=== PATIENT | male | born 1990 | race Caucasian/White ===

== ENCOUNTER 2017-04-14 13:18 | Inpatient (IN) | payer OTHER ==
[2017-04-14 13:26] VITALS: BP 147/84; PULSE 79; RESP 18; O2SAT 99
--- NOTE | 2017-04-14 13:58 | ED.REPORT ---
HPI-Psychiatric Illness Date of Service Apr 14, 2017 ED Provider: Marino Cade MD The patient is a 27 year old male w/ a hx pf bipolar schizophrenic who presents to the ED via PD for a mental health evaluation. The patient is living with his mother on [address]. His mother called the police department after the patient was having a breakdown and throwing his pill bottles everywhere. It took his mother 45 minutes to find her phone because the pt had hidden it. When police arrived, the pt was outside and walked away from the deputy. The officer established a good report and was able to get the pt in the car. Inside the car , the pt became angry and irritable and placed in handcuffs. At the ED, the pt claims he is part of a satellite and government program. He is the legal foster child of Jodi and Tristan [place] and has been under remote technology for 7 months now. He repeats that he is "not crazy and works for a living." He reports that he, "doesn't know what is going on and his mother wanted him to come here." Pt states that he is coming off of Valium and Adderall. He was recently in a 7 month psychiatric treatment center in [place]. Nursing Notes Stated Complaint: OFF MEDS/VIOLENT BEHAVIOR Chief Complaint: Psychiatric Complaint Nursing Notes Reviewed: Yes ([employer], meds not reconciled) Allergies: Coded Allergies: No Known Allergies (Unverified , REPORTED BY MOM, 04/14/17) General Time Seen by MD: 13:55 Chief Complaint Paranoid Hx Obtained From: Patient Arrived By: Police Onset Occurred: Just prior to arrival Symptom Duration: Since onset Severity: Current: No pain currently Recent Healthcare: No recent doctor visit, No recent hospitalization Similar Sx Previous: No Risk-Psychiatric Illness Suicide Risk Stratification Suicide Risk Factors - Adult: : Prior psych admission RF Statements: Risk factors reviewed Past Medical History Past Medical History bipolar schizophrenic (Extensive psychiatric hospitalizations including last years spending 7 months hospitalized in [place] for psychiatric care) Past Surgical History denies Smoking History Unknown if Ever Smoker Social History Drug Use: Valium Other Social History: Lives with parents Ambulatory Status Independent Review of Systems Unable to Obtain ROS Patient condition, Mental status Physical Exam Initial Vital Signs Vital Signs (First) Date Time Temp Pulse Resp B/P Pulse Ox O2 Delivery O2 Flow Rate FiO2 04/14/17 13:26 36.8 79 18 147/84 99 Room Air Initial VS: Reviewed, Vital signs normal General/Constitutional: Awake, Cooperative rapid speech delusional Neurologic: Speech NL Abnormal Mood/Affect: Positive: Anxious, Flight of ideas Abnormal Thinking / Perception: Positive: Delusions - grandeur, Delusions - paranoid, Flight of ideas, Hallucinations, auditory, Insight abnormal, Judgment abnormal, Tangential thinking Pt does not respond when asked about suicidal or homicidal ideations Head / Eyes: Atraumatic, Normocephalic, PERRL ENT: Atraumatic, Airway patent, Mucous membranes moist Respiratory / Chest: Atraumatic, Breath sounds NL, Breath sounds = bilat Cardiovascular: Heart rate NL, Regular rhythm, Heart sounds NL Skin: Atraumatic, Color NL, No rash Upper Extremity / MS: Atraumatic, Full range of motion, No deformity Wrist / Hand: Atraumatic, Full range of motion, No deformity Lower Extremity / Pelvis / MS: Atraumatic, Full range of motion, No deformity Ankle / Foot: Atraumatic, Full range of motion, No deformity Interpretation & Diagnostics Lab Results Interpretation Result Diagram: 04/14/17 1420 04/14/17 1420 Test 04/14/17 14:06 04/14/17 14:20 Urine Color Yellow (YELLOW) Urine Appearance Clear (CLEAR,HAZY) Urine pH 6.5 (5.0-8.0) Urine Specific [place] 1.020 (1.003-1.035) Urine Protein Negativemg/dL (NEG,TRACE) Urine Glucose (UA) Negativemg/dL (NEGATIVE) Urine Ketones Negativemg/dL (NEGATIVE) Urine Occult Blood Negative (NEGATIVE) Urine Nitrite Negative (NEGATIVE) Urine Bilirubin Negative (NEGATIVE) Urine Urobilinogen Normalmg/dL (NORMAL) Urine Leukocyte Esterase Negative (NEGATIVE) Urine RBC 0-2/hpf (0-2) Urine WBC 0-5/hpf (0-5) Urine Epithelial Cells None/hpf (NONE-MOD) Urine Crystals None seen (NONE SEEN) Urine Bacteria None/hpf (NONE-FEW) Urine Hyaline Casts None/lpf (NONE) Urine Granular Casts None seen (NONE SEEN) Urine Waxy Casts None seen (NONE SEEN) Urine Red Blood Cell Casts None seen (NONE SEEN) Urine White Blood Cell Casts None seen (NONE SEEN) Urine Mucus None seen (None Seen) Urine Trichomonas None seen (NONE SEEN) Urine Yeast None (NONE SEEN) Urinalysis Comment None Urine Culture Reflexed Not indicated White Blood Count 8.4th/mm3 (3.8-10.1) Red Blood Count 5.48mil/mm3 (4.40-5.80) Hemoglobin 16.4g/dL (13.8-17.2) Hematocrit 48.5% (41.0-50.0) Mean Corpuscular Volume 88.5fL (81-100) Mean Corpuscular Hemoglobin 29.9pg (27.0-35.0) Mean Corpuscular Hemoglobin Concent 33.8% (32.0-37.0) Red Cell Distribution Width 13.0% (12.3-15.4) Platelet Count 130bil/L (150-400) Neutrophils (%) (Auto) 77.7% (40-74) Lymphocytes (%) (Auto) 16.5% (14-46) Monocytes (%) (Auto) 5.5% (4-12) Eosinophils (%) (Auto) 0.2% (0-5) Basophils (%) (Auto) 0.1% (0-3) Sodium Level 142mEq/L (134-144) Potassium Level 4.0mEq/L (3.5-5.2) Chloride Level 104mEq/L (97-108) Carbon Dioxide Level 22mmol/L (18-29) Blood Urea Nitrogen 21mg/dL (6-20) Creatinine 0.79mg/dL (0.76-1.27) Estimat Glomerular Filtration Rate 126mL/min (>59) Glucose Level 86mg/dL (60-99) Calcium Level 10.6mg/dL (8.5-10.1) Total Bilirubin 0.4mg/dL (0.0-1.2) Aspartate Amino Transf (AST/SGOT) 16U/L (0-50) Alanine Aminotransferase (ALT/SGPT) 15U/L (0-44) Alkaline Phosphatase 75U/L (25-150) Total Protein 8.0g/dL (6.4-8.4) Albumin 5.1g/dL (3.4-5.0) Thyroid Stimulating Hormone (TSH) 0.726uIU/mL (0.450-4.500) Hold Jones Top Tube Received (Received) Lab Results Interpretation: Alcohol 0 U tox negative CBC normal CMP normal TSH normal Re-Eval/Medical Decision Med Decision/Clinical Course This is a 27-year-old male brought by law enforcement for mental health evaluation. The patient himself is unable to provide any useful history-is very focused on his paranoid delusions of being part of a government monitoring program, being the foster child of Katheryn [place], being the recipient of microwave communications directly into his brain to the point he rapid fire reiterates these points again and again, but will not engage in a productive conversation. According to the officer and per the relayed information from the PULLMAN CLERK spoke with the patient's mother, the patient is an extensive psychiatric history and has had numerous prior hospitalizations including a 7 month hospitalization last year. However according to the PULLMAN CLERK's report from the mother, the patient did not like the sense of being slightly on the medication regimen when he is discharged last July-and promptly discontinue his medications. They report that he has not been taking any medications, and has refused to go see a provider, does not want to be hospitalized, does not want to be on any medication, and other than trying to get him in to be seen, he is refused. He has become increasingly paranoid and delusional. Today there was some sort of incident where he became threatening, the point that the mother ended up trying to lock him outside the house to protect herself, and he kept trying to forgot how to break into the house and removing a screen such called 911 and that is when law enforcement arrived. The patient repeatedly states "I am not crazy". He then goes on to list the long length the components of delusions as briefly described above. On exam he has increased psychomotor activity with pacing, rapid movements, and inability to focus, and pressured speech. He has absent insight, and absent judgment. He is mildly agitated, required seclusion. [id number] evaluation was performed on concimittant to the initiation of seclusion. With effort the patient can be briefly redirected. He does not answer any questions about suicidality or homicidality, he does not answer most questions and again is focused on communicating his involvement in Government programs rather than answering or engaging in conversation. He does not demonstrate overt signs of intoxication or withdrawal. His tox screen is negative. Alcohol was 0. His blood work is normal. At this point the clinical history, medication noncompliance, and exam findings are consistent with an highly suggestive of a psychiatric origin. There are no features of an organic etiology. The PULLMAN CLERK has seen the patient discussed the case with the patient's mother is attempting to get an affidavit from her, there is also enforcement affidavit- and at this point the DCRs being paged for evaluation, as it is both my opinion and The PULLMAN CLERK 's that the patient should be detained. I have offered the patient medication, and thus far he is declined. Source of Hx: Old records Re-Evaluation/Progress : Time of Eval: 13:30 Re-Evaluation/Progress Note: Pt rechecked. Face to face evaluation performed. Differential Diagnosis: Positive: Noncompliance-medications Counseled Regarding: Diagnosis, Lab results, Need for admission Discharge & Departure Shift Change Sign-Out Patient Care Transferred: Yes Discussed Complaint(s): Yes Laboratory Evaluation: Lab evaluation discussed Input from Consult: Care transferred to Dr. Smith at change of shift. Impression: Primary Impression: Psychosis Psychosis type: unspecified psychosis type Qualified Code: F29 - Unspecified psychosis not due to a substance or known physiological condition Additional Impression: Noncompliance with medication regimen Disposition: ADMITTED TO HOSPITAL Discharge Condition All VS Reviewed: Yes Condition: Stable Care Transferred to: Pt care transferred to Dr. Smith at change of shift. Care Transferred at: 18:01 Scribe Attestation Portion of this note were transcribed by Carla Marquis. I, Dr. Cade, personally performed the history, physical exam, and medical decision-making: I reviewed and confirmed the accuracy for the information in the transcribed note. Signed by: ashleigh Rios, 04/14/17 1700 Marino Cade MD Apr 14, 2017 13:58 Carla Marquis Apr 14, 2017 14:14
[2017-04-14 14:34] LABS: BASOPHILS % (AUTO) 0.1 % (0-3); EOSINOPHILS % (AUTO) 0.2 % (0-5); MONOCYTES % (AUTO) 5.5 % (4-12); Mean Corpuscular Hemoglobin 29.9 pg (27.0-35.0); Mean Corpuscular Volume 88.5 fL (81-100); NEUTROPHILS % (AUTO) 77.7 % (40-74); Platelet Count 130 bil/L (150-400)
[2017-04-14 14:53] LABS: APPEARANCE,URINE CLEAR (CLEAR,HAZY); COLOR,URINE YELLOW (YELLOW); PH,URINE 6.5 (5.0-8.0)
[2017-04-14 14:54] LABS: OCCULT BLOOD,URINE NEGATIVE (NEGATIVE); UROBILINOGEN,URINE NORMAL (NORMAL)
[2017-04-14 18:28] VITALS: BP 118/70; PULSE 77; RESP 20; O2SAT 100
[2017-04-14] MEDS ORDERED: OLANZapine Zydis ODT 5 mg Tablet PO ONE (22:55)
[2017-04-15 08:26] VITALS: BP 102/56; PULSE 60; RESP 16; O2SAT 100
[2017-04-15] MEDS ORDERED: LORazepam 1 mg Tablet PO PRN (10:05)
[2017-04-15] MEDS ORDERED: Alum-Mag Hydrox-Simeth 30 mL Suspension PO PRN (10:05)
[2017-04-15] MEDS ORDERED: Magnesium Hydroxide 10 mL Oral Concentration PO PRN (10:05)
[2017-04-15] MEDS ORDERED: Benzocaine-Menthol Lozenge 2/Pkg PO PRN (10:05)
[2017-04-15] MEDS ORDERED: OLANZapine Zydis ODT 5 mg Tablet PO PRN (10:10)
[2017-04-15] MEDS: Divalproex (QD) 500 mg ER24 Tablet PO SCH ×2 (10:54→19:58)
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
[2017-04-15] MEDS ORDERED: NO HOME MEDS (14:17)
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
--- NOTE | 2017-04-15 17:56 | NUR ---
Observations [id number] Pt arrived on unit, easily distracted by outside stimulant and focused on whom he states are his parents, Tristan and Katheryn [place]. Pt stated he wanted a snack and shower, but unsure which task he'd like to complete first. Pt slept much of the morning, did attend lunch and dinner eating 75%. Pt unclear with communication, appearing distracted by internal stimuli as well. Pt asked for crayons to color, and spent time in the dining area. He later returned to his room in the evening to sleep. Pt was observed every 15 minutes of shift as directed.
--- NOTE | 2017-04-15 21:56 | NUR ---
NURSING NOTE [id number] Mood: "what, what are you saying? If I answer will I stay here longer?" Affect: paranoid, delusional, agitated at times Behavior: pt. often pacing the unit, on the phone with his mother (pt. at one point told this flex o writer operator "I'm on the phone with my mom but then corrected himself and said: "I mean... the lady I've been living with"), his mother later visited him here w/out issue. Pt. was visibly responding to stimuli, twitching his head off and on and talking to unseen others throughout the shift. He was offered PRN Zyprexa but refused. Also refused his scheduled HS Depakote stating "I already had that today-- 500 mg is too much". Provided pt. with education and assurance but pt. became increasingly agitated at the thought of having to take Depakote. Pt. asked if he could take PRN Ambien but then only wanted "half a pill or else my jaw will be paralyzed" so was given 2.5 mg Ambien total. Thought processes: suspicious, delusional (e.g. wants to be called "[place] Stanislav" and believes he is the son of Katheryn and Tristan [place]), pressured, racing thoughts. States he does not need any antipsychotics.
--- NOTE | 2017-04-16 05:35 | NUR ---
Nursing Note Photocomposition Keyboard Operator 11pm to 7am Pt asleep at start of shift, after taking Ambien 2.5mg ( declined whole dose of 5mg) at 2200, and remained asleep the remainder of the shift. No issues observed or reported. Slept 6.5 hours Monitored pt. with q 15 minute face checks for safety location and accountability
[2017-04-16] MEDS: Divalproex (QD) 500 mg ER24 Tablet PO SCH (09:12)
[2017-04-16] MEDS: Ascorbic Acid 500 mg Tablet PO SCH (12:06)
--- NOTE | 2017-04-16 13:10 | PROG NOTE ---
[address] [address] PROGRESS NOTE PATIENT: CHANDAN RYAN : 1990 MR#: [id number] ADMIT: 04/15/2017 JOB ID: [id number] DATE: 04/16/2017 CHIEF COMPLAINT: "I did take some Ambien last night. I think it helped. Can you make sure that I get it again tonight?" HISTORY OF PRESENT ILLNESS: As stated above, the patient did indicate that he would like to continue on medications including Ambien. However, I have discussed contributing factors of addiction of the patient with recommendations of institution of melatonin. He indicated that he would be fine with trying it, but states that he is very sensitive to medications. In addition, he would like to actually take vitamin C indicating that he is feeling like he has a scratchy throat. He reportedly did refuse his last evening dose of Depakote but upon further explanation with myself he is agreeable to continuing with the medication interventions. Per nursing staff report, the patient did have a visit from his mother and did have a notable shift of mood irritability and agitation post visit. He indicated that his mother is very controlling and tries to dictate how he is going to run his life. He does show some significant improvement with clearing of his sensorium on approach. He was able to maintain better eye contact and showed decreased hyperkinesis. Later the patient is detoxing from previous usage of amphetamines including Adderall, methamphetamine and previous usage of Xanax. OBJECTIVE: On mental status examination, the patient as noted made significant improved eye contact. He did shower earlier this morning. His speech is less pressured and more coherent, cohesive. His mood is neutral. His affect is more appropriate. His thought process shows no evidence of racing thoughts. He is mildly loose and disorganized but much more redirectable. His thought content: He denied any evidence of current suicidal or homicidal ideation. There was no evidence of active hallucinations or delusions. He at times appears to be responding to internal stimulus but denies any experience of auditory hallucinations. He was alert, oriented to time and place. His attention and concentration intact. Insight and judgment are fair. PHYSICAL EXAM: All vital signs are current. Temperature is 36.1, pulse 60, respirations 16, BP 102/56. MEDICATION REVIEW: Includes: 1. Depakote 500 mg ER b.i.d. 2. Ambien 2.5 mg q.h.s. taken last night. 3. Vistaril 50 mg q.4 hours p.r.n. 4. Ativan 1 mg q.4 hours p.r.n. ASSESSMENT: AXIS I 1. Mood disorder, not otherwise specified. 2. Polysubstance use disorder including amphetamines and benzodiazepines. 3. Rule out substance induced mood disorder. AXIS II Deferred. AXIS III None. AXIS IV Stressors are noted for chronic substance use, disturbance of coping. AXIS V Global assessment of functioning of current 35. PLANS: 1. Recommendations for probable discharge tomorrow with discontinuation of 72 hour hold. 2. Recommendations for continuation of Depakote ER 500 mg b.i.d. with further titration deferred to outpatient care providers. 3. Discontinuation of Ativan and Ambien based on the patient's history of significant addiction. 4. Recommendations for institution of melatonin 5 mg q.h.s. for sleep disturbance. 5. Followup to be arranged with community based centers including [facility], [facility] or connections with [facility]. TISH
--- NOTE | 2017-04-16 14:39 | NUR ---
Nursing 7a-3p Pt showing slight improvement in thought content. He is restless on the unit pacing the hallways. He is quickly irritated when called Akin instead of "Pucket". Akin is patient's given name and "Pucket" is the name he has chosen for himself. When staff apologized for calling him Akin he became irritable and stated "No one is allowed to call me that unless you are a gangster. You are not a gangster!" Pt later came and apologized for yelling and asked "You aren't going to report that are you." Pt able to maintain behavioral control with no further verbal outbursts noticed. He has been looking at a book his mother brought him. Took scheduled medication. Continue to monitor mood, behavior and activities on the unit.
--- NOTE | 2017-04-16 15:52 | NUR ---
Observations [id number] Pt continues to appear distracted by internal stimuli, present as restless and irritable. Pt paced the unit much of the day, using the phone multiple times becoming more agitated. This administrative underwriter heard pt state after a phone call "the [employer] deal is off, here comes [facility]!" Pt demanding at times, asking for crayons, and demanding snack though pt is redirectable when approached. Pt attended all meals, eating 75%. He appears to have a difficult time focusing and is communication is limited. Pt was observed every 15 minutes of shift as directed.
--- NOTE | 2017-04-16 18:09 | NUR ---
[id number] NURSING NOTE Mood: "yeah, yeah, fine" Affect: distracted, less frenetic than yesterday evening but still fairly restless, guarded Behavior: Pt. mostly paces the hallways, keeps to himself and avoids interactions w/peers and staff (often walks away in mid-conversation w/this expert medical writer). Making multiple phone calls. Continues to twitch his head back and forth off and on. Initially hesitated to accept a visit from his mother but then changed his mind. Became increasingly agitated during the visit so visit was cut short and pt's mother was brought off unit. Thought processes: pt. continues to be delusional, fretful, disorganized. He wants to be called "[place]", believes someone named "Bethanie" is coming after him, perseverates on his scheduled Depakote, repeating over and over throughout the shift: "I'll just be taking 2 Depakote... 2 Depakote". He makes frequent mention of [place] and the [employer]. Nursing note: He told his mother he is discharging tomorrow and she later spoke to this expert medical writer in private requesting more information re: patient's condition and discharge plans but the pt. has not signed an TYLER so information could not be extended at that time. Pt's mother told this expert medical writer she cannot bring him home tomorrow in the state he is in and that she would prefer he be in a correction setting.
[2017-04-16] MEDS ORDERED: Divalproex (QD) 500 mg ER24 Tablet PO ONE (22:23)
--- NOTE | 2017-04-17 04:49 | NUR ---
Observations 1900 to 0700 Pt was visiting with mom when my shift started. Pt was in and out of his room all evening, pacing back and forth. Pt was labile, anxious, paranoid and unsocial. Pt was polite and cooperative when approached, but would only respond with head nods and one word responses. Pt behavior was withdrawn. Pt ate snack and had some hot chocolate. Pt first appeared asleep at 0000 and was observed every 15 minutes through the night as ordered. Pt had broken sleep and he had a hard time falling asleep.
[2017-04-17] MEDS ORDERED: Divalproex (QD) 500 mg ER24 Tablet PO SCH (08:30)
[2017-04-17] MEDS: Ascorbic Acid 500 mg Tablet PO SCH (08:53)
--- NOTE | 2017-04-17 09:58 | PCM.DIMED ---
Discharge Instructions Date of Service Apr 17, 2017 Dates of Hospitalization Apr 15, 2017 at 08:44 Discharge Diagnosis Discharge Diagnosis Substance Induced Mood DO Polysubstance Use DO including amphetamines and benzodiazepine Substance induced Psychosis Diet Discharge Diet: No restrictions Activity Discharge Activity: No restrictions Chilo Dong DO Apr 17, 2017 09:58
[2017-04-17] MEDS ORDERED: Ascorbic Acid PO (09:59)
[2017-04-17] MEDS ORDERED: DIVA500T14 PO (09:59)
[2017-04-17] MEDS ORDERED: MELA5TAB14 PO (09:59)
[2017-04-17] MEDS ORDERED: DEP500ER PO (10:21)
--- NOTE | 2017-04-17 10:52 | NUR ---
Postdoctoral Fellow The patient had court and was released from his 72hour hold. He is able to contract for safety and denies any SI at this time. The patient will be going to [facility] and has follow up services at [facility] in [place]. The patient was unable to go back to his mothers care at this time on [facility]. The patient is ready for discharge.
--- NOTE | 2017-04-17 12:28 | NUR ---
[id number]. nurs. Discharge note. Pt verbalizing understanding of med plan and f/u apt and prescriptions faxed to [facility], pt asking questions about discharge destination [facility], and wanting belongings brought there by his mother. Pt continued to be restless around unit, scattered, with poor general focus apart from on discharge plan. Pt's mother communicating with Dr verduzco pt's care plan. Pt discharged at 1155 by cab to [facility].
--- NOTE | 2017-04-17 13:22 | DIS ---
[address] [address] DISCHARGE SUMMARY PATIENT: CHANDAN RYAN : 1990 MR#: [id number] ADMIT: 04/15/2017 JOB ID: [id number] DIS: ADMITTING DIAGNOSES: Include: Vilonia I: 1. Schizoaffective disorder, bipolar type by history. 2. Polysubstance use disorder including amphetamines and benzodiazepines. 3. Rule out substance-induced mood disorder. 4. Rule out substance-induced psychosis. Vilonia II: Deferred. Vilonia III: None. Vilonia IV: Stressors are noted for chronic mental health issues, chronic substance use, noncompliance with medications. Vilonia V: Global Assessment of Functioning of current 20. DISCHARGE DIAGNOSES: Include: Vilonia I: 1. Substance-induced mood disorder. 2. Substance-induced psychosis, resolving. 3. Polysubstance use disorder including amphetamines and benzodiazepines. Vilonia II: Deferred. Vilonia II: None. Vilonia IV: Stressors are noted for chronic substance use, noncompliance with medications. Vilonia V: Global Assessment of Functioning of current 40. REASON FOR ADMISSION: The patient was a 27-year-old male who was admitted under ALYSHA status with concerns of grave disability and imminent threat of danger to others. During the course of hospitalization the patient's history was reviewed with contributory information provided by the mother with 11 prior admissions and psychiatric hospitalizations throughout the [place] The patient reportedly had a previous history of diagnosis of bipolar disorder, schizoaffective disorder, with noted significant polysubstance use. He openly admitted to myself that he had been abusing agents including Adderall, methamphetamine, and benzodiazepines, indicating that this was his preference. Throughout the hospital course, the patient reviewed his previous trials of antipsychotics with development of dystonia and withdrawal dyskinesias. He openly identified a willingness, however, to initiate doses of Depakote and showed significant improvement, with evidence of mood stabilization. Throughout hospital course, the patient's mother did call repeatedly with open identification that she felt the patient needed to be in a long-term residential placement setting. It was felt that the patient did not meet criteria based on his current substance abuse as a primary presentation. Further, I did speak with the patient's assigned hybrid corn breeder through the court process. Mother was pursuing full guardianship. I did inform the hybrid corn breeder that she would need to obtain a subpoena or release of information for further details to be related. I did, however, discuss with the hybrid corn breeder the plan and intent of discharging the patient back to his own care. On the day of discharge the patient indicated that he had spoken with the mother, who indicated that she did not want him to be discharged. I did inform the patient that, based on his current presentation, I was not pursuing a prolongation of hospitalization, but rather encouraged him to maintain a clean and sober lifestyle and a willingness to continue with his doses of Depakote. He was open to a referral to a local [facility] and agreeable to follow up with outpatient care providers in the community. MENTAL STATUS EXAMINATION: General appearance: The patient was cooperative, polite. He showed significant improvement with the administration of Depakote 500 mg b.i.d. He continued be somewhat agitated, easily irritated, and showed limited frustration tolerance with his mother. He was encouraged to continue with the court process and to openly contest the presentation of guardianship if he felt that this was not in his best interest. He is aware that he does have a hybrid corn breeder assigned to his care at this time. His speech was of normal tone, frequency, and volume. His mood was neutral. Affect was mildly elevated, specifically with interactions with the mother. He denied any evidence of suicidal or homicidal ideation. There was no evidence of active hallucinations. He does have continual delusional reference, identifying that he believes that he is a foster child of [place], but he made no mention of such during last 24 hours of his hospitalization. He was alert, oriented to time and place. His attention and concentration intact. Memory intact in the short term, continuous churn buttermaker, recent. Insight and judgment are poor. PLAN: 1. Recommendations for followup with [facility] for ongoing medication management. Appointments are pending. 2. Continuation of medications including Depakote 500 mg ER b.i.d., one month supply given, no refills. Reason for usage: Mood stabilization. 3. Continuation of vitamin C at patient's request 1000 mg daily, one month supply, no refills. Reason for usage: Supplemental. 4. Continuation of melatonin 5 mg q.h.s., one month supply, no refills. Reason for usage: Insomnia. 5. The patient was encouraged to consider enrollment in a chemical dependency treatment program but the patient has declined at this time. 6. The patient was encouraged to maintain contact with his hybrid corn breeder and to cooperate with the court system in reference to the pursuit of full guardianship. He at this point identifies that he does not want this to occur and I have encouraged him to speak further with the court appointed attornies involved with his care. TISH
== END 2017-04-17 11:55 | disposition home or self-care (01) | DRG 897 ==
LOC: SED 13:18 → MHC 04-15 08:44
PROVIDERS: ADMIT Psychiatry & Neurology Psychiatry; ATTEND Psychiatry & Neurology Psychiatry
DX: F15.14 Other stimulant abuse with stimulant-induced mood disorder (principal); F25.0 Schizoaffective disorder, bipolar type; Z65.3 Problems related to other legal circumstances; Z91.19 Patient's noncompliance with other medical treatment and regimen; F15.159 Other stimulant abuse with stimulant-induced psychotic disorder, unspecified